=== PATIENT | male | born 1970 | race Caucasian/White ===

== ENCOUNTER 2018-03-04 16:34 | Emergency (ER) | payer OTHER, SELFPAY ==
[2018-03-04 16:37] VITALS: BP 121/62; PULSE 68; RESP 18; TEMP 36.1; O2SAT 98; BMI 37.5
[2018-03-04] MEDS: Diphth,Pertuss(Acell),Tet Vac 0.5 ML Vial IM (17:26)
--- NOTE | 2018-03-04 17:30 | RAD_ITS ---
STUDY: X-RAY - LEFT WRIST REASON FOR EXAM: Male, 47 years old. Had a bad fall onto left arm yesterday at work, left wrist pain, laceration TECHNIQUE: 3 view(s) of the wrist were obtained. COMPARISON: None. FINDINGS: Normal visualized distal radius and ulna. Normal radiocarpal articulation. Normal distal radioulnar articulation. Normal carpal bones. Normal carpal articulations. There is degenerative arthrosis of the carpometacarpal articulation of the thumb. Normal second through fifth carpometacarpal articulations. Normal visualized metacarpal bones. There is a linear radiodensity between the first and second digits. There is soft tissue swelling of the dorsal wrist. RAD/Wrist min 3 Views IMPRESSION: 1. Dorsal wrist soft tissue swelling without demonstrated fracture. 2. 4 mm density between the first and second digits could represent foreign body, unknown age. Electronically Signed: Shay Gonzalez MD at 18:10 EST , Service support ,
--- NOTE | 2018-03-04 17:30 | ED.DCSUM_ITS ---
- ER Visit Summary Date of Service: 03/04/18 Chief Complaint: Left forearm injury History of Present Illness: The patient is a 47 M who has a left forearm injury. He was at work yesterday when a bed frame fell onto his left arm. He sustained a abrasion to this area. He comes in today because he is having pain when he moves his left wrist. His last tetanus shot was unknown. Denies any other injuries. Physical Examination: Vital signs are reviewed. Left arm exam reveals tendern ess of the left distal radius area. There is an overlying abrasion. He has painful range of motion. No other physical exam findings seen. Test Results: Left wrist x-ray per my interpretation reveals no fractures Emergency Department Course and Treatment: Patient was given a tetanus shot. There is no fractures. He will do localized wound care. Ice and NSAIDs at home Treatment Plan: [] Disposition: Discharge Impression: Left wrist contusion, left wrist abrasion This note was generated with [employer] dictation software. It may contain incorrect words, spelling, and punctuation that were not noted in review of the chart prior to signing ED Disposition - Plan for ED Patient: Chief Complaint: Trauma Referrals: Care Physician,No Primary [Primary Care Provider] -
--- NOTE | 2018-03-04 17:51 | ED.DEP ---
ED Disposition - Plan for ED Patient: Disposition: Home or Assisted Living Chief Complaint: Trauma Instructions: ED Contusion Upper Ext Referrals: Care Physician,No Primary [Primary Care Provider] -
== END 2018-03-04 18:08 | disposition home or self-care (01) ==
PROVIDERS: Emergency Provider Emergency Medicine
DX: S60.212A Contusion of left wrist, initial encounter (principal); S60.812A Abrasion of left wrist, initial encounter; W22.8XXA Striking against or struck by other objects, initial encounter; Y93.9 Activity, unspecified; Y92.9 Unspecified place or not applicable
CPT/HCPCS: 73110; 90471; 90715; 99282

== ENCOUNTER → 2025-01-04 | Outpatient (CLI) | payer BC, SELFPAY ==
--- NOTE | 2025-01-04 09:23 | RAD_ITS ---
PROCEDURE: CHEST PA AND LATERAL 01/04/2025 REASON FOR EXAM: COUGH TECHNIQUE: Procedure Code: RADCXR Modality: DX Procedure: CHEST PA AND LATERAL COMPARISON: None FINDINGS: Hardware: None Heart: The heart size is normal. Mediastinum: The mediastinal contour is unremarkable. Lungs: Scattered calcified granulomas. No acute infiltrate is seen. Bones: Degenerative changes are identified within the thoracic spine. RAD/Chest PA and Lateral IMPRESSION: No acute infiltrate is seen. Reading Location: [place] [id number]
== END | disposition home or self-care (01) ==
LOC: MTRAD 09:22
PROVIDERS: Referring Provider Physician Assistant Surgical; Visit Provider Physician Assistant Surgical
DX: R05.9 Cough, unspecified (principal)
CPT/HCPCS: 71046